=== PATIENT | male | born 1960 | race Two or more races ===

== ENCOUNTER 2018-10-08 16:39 | Emergency (ER) | payer SELFPAY ==
[~2018-10-08] VITALS: Ht 167.6 cm; Wt 85.0 kg
[2018-10-08] MEDS ORDERED: METF-960 PO (16:44)
[2018-10-08 16:47] VITALS: BP 200/108
== END 2018-10-08 18:42 | disposition left against medical advice (07) ==
LOC: EDBD 16:42 → EMS 16:42
DX: R07.9 Chest pain, unspecified (principal); Z53.21 Procedure and treatment not carried out due to patient leaving prior to being seen by health care provider
CPT/HCPCS: 93005